=== PATIENT | male | born 1970 | race American Indian/Alaskan Native ===

== ENCOUNTER 2017-04-06 17:51 | Emergency (ER) | payer BC ==
[2017-04-06] MEDS ORDERED: Sodium Chloride 0.9% 10 ML Syringe FLUSH PRN (18:36)
[2017-04-06] MEDS ORDERED: Ondansetron 4 MG/2 ML SDV IV ONE (18:42)
--- NOTE | 2017-04-06 18:50 | EDM.PDOC ---
Scribed by Constance Peoples 04/06/17 [id number] for Juan Narayan MD <Juan Narayan - Last Filed: 04/06/17 18:49> ED HPI GENERAL MEDICAL PROBLEM - General Chief Complaint: General Stated Complaint: FEEL SICK [id number] Time Seen by Provider: 04/06/17 18:22 Source of Information: Reports: Patient, RN, RN Notes Reviewed History Limitations: Reports: No Limitations - History of Present Illness INITIAL COMMENTS - FREE TEXT/NARRATIVE: Arrives by private vehicle with complaint of vague not feeling well x2 days. Patient states that 2 evenings ago he fell asleep on the couch. He was having difficulty waking up. States that he could see his , but he felt as though he was looking through a swarm of nats. He states that he closed his eyes and blinked a few times, but continued to have the visual changes. He fell back asleep and awoke with normal vision. Today he felt well enough to travel from his home at [place] to look at the animals at [facility] and shortly after arriving he began to drop objects unintentionally from both hands, but states that he did not feel weak, but yet continued dropping objects. He also developed some twitching of his right leg. Admits to a pressure like headache of 2 days but states that it is mild to moderate. He last ate at 3 pm chicken at [facility] and has vomited twice since then. Denies abdominal pain. Admits to mild nausea. Patient's reports that he has been mildly confused on and off during the day. Denies fever or chills. Patient had a left forearm AV fistula placed for dialysis approximately one and half weeks ago in [place] and has a central venous port in the right upper chest, which he has been receiving dialysis through. Patient is not able to provide any further history. Location: Reports: Generalized Quality: Reports: Ache Severity: Severe Improves with: Reports: None Worsens with: Reports: None Associated Symptoms: Reports: No Other Symptoms - Related Data Allergies Allergy/AdvReac Type Severity Reaction Status Date / Time labetalol Allergy Intermediate jose raul and Verified 04/06/17 18:06 potassium spikes Home Meds: Home Meds Acetaminophen/oxyCODONE [Percocet 325-5 MG] 1 tab PO ASDIRECTED PRN 04/06/17 [ History] Baclofen [Baclofen] 1 tab PO BID 04/06/17 [History] Cephalexin [Cephalexin] 1 cap PO DAILY 04/06/17 [History] ClonazePAM [KlonoPIN] 1 tab PO ASDIRECTED PRN 04/06/17 [History] Colesevelam [Welchol] 2 tab PO BID 04/06/17 [History] Diclofenac Sodium [Voltaren] 1 applicful TOP ASDIRECTED PRN 04/06/17 [History] Doxazosin [Cardura] 1 tab PO BEDTIME 04/06/17 [History] Doxazosin [Cardura] 2 tab PO DAILY 04/06/17 [History] Exenatide Microspheres [Bydureon Pen] 2 mg SQ WEEKLY 04/06/17 [History] Furosemide [Furosemide] 1 tab PO DAILY 04/06/17 [History] Gabapentin [Neurontin] 1 cap PO BID 04/06/17 [History] Insulin Aspart [NovoLOG] 20 unit SQ TID 04/06/17 [History] Insulin Degludec [Tresiba Flextouch U-200] 100 unit SQ BID 04/06/17 [History] LORazepam 1 tab PO ASDIRECTED PRN 04/06/17 [History] Levothyroxine Sodium [Synthroid] 2 tab PO DAILY 04/06/17 [History] Metoprolol Succinate [Toprol XL] 1 tab PO DAILY 04/06/17 [History] Omeprazole [Omeprazole] 1 tab PO BID 04/06/17 [History] Ondansetron [Ondansetron ODT] 1 tab PO ASDIRECTED PRN 04/06/17 [History] Promethazine [Phenergan] 1 tab PO ASDIRECTED PRN 04/06/17 [History] traMADol [Ultram] 1 tab PO ASDIRECTED PRN 04/06/17 [History] Past Medical History Cardiovascular History: Reports: Heart Failure, Hypertension Genitourinary History: Reports: Chronic Renal Insuffiency, Dialysis Endocrine/Metabolic History: Reports: Diabetes, Type II, Hypothyroidism, IDDM, Obesity/BMI 30+ Social & Family History - Family History Family Medical History: Noncontributory - Tobacco Use Smoking Status *Q: Never Smoker - Alcohol Use Alcohol Use History: No - Recreational Drug Use Recreational Drug Use: No ED ROS GENERAL - Review of Systems Review Of Systems: ROS reveals no pertinent complaints other than HPI. ED EXAM, GENERAL - Physical Exam Exam: See Below Exam Limited By: Altered Mental Status General Appearance: Alert, Obese Eye Exam: Bilateral Eye: EOMI, Normal Inspection, PERRL Ears: Normal External Exam, Hearing Grossly Normal Nose: Normal Inspection, Normal Mucosa, No Blood Throat/Mouth: Normal Inspection, Normal Lips, Normal Teeth, Normal Gums, Normal Oropharynx, Normal Voice, No Airway Compromise, Other (dry oral membranes) Head: Atraumatic, Normocephalic Neck: Normal Inspection, Supple, Non-Tender, Full Range of Motion Respiratory/Chest: No Respiratory Distress, No Accessory Muscle Use, Chest Non- Tender, Decreased Breath Sounds, Crackles Cardiovascular: Normal Peripheral Pulses, Regular Rate, Rhythm, No Edema GI/Abdominal: Normal Bowel Sounds, Soft, Non-Tender, No Distention, No Abnormal Bruit, Other (benign obese abdomen) (Male) Exam: Deferred Rectal (Males) Exam: Deferred Back Exam: Normal Inspection Extremities: Normal Inspection, Normal Range of Motion, Non-Tender, Normal Capillary Refill, No Pedal Edema Neurological: Alert, Oriented, No Motor/Sensory Deficits Psychiatric: Normal Affect, Normal Mood Skin Exam: Warm, Dry, Intact, Normal Color, No Rash, Other (CP port at Rt upper chest wall with very small area of irritation/erythema for approx. 1-2mm around the port and the sutures, no tenderness, no purulent drainage) Course - Vital Signs Last Recorded V/S: Last Vital Signs Temp 97.4 F 04/06/17 20:39 Pulse 80 04/06/17 20:39 Resp 16 04/06/17 20:39 BP 151/72 H 04/06/17 20:39 Pulse Ox 97 04/06/17 20:39 - Orders/Labs/Meds Orders: Active Orders 24 hr Category Date Time Status EKG 12 Lead [EKG Documentation Completion] [RC] STAT Care 04/06/17 18:35 Active Peripheral IV Care [RC] . DIRECTED Care 04/06/17 18:37 Active Telemetry Monitoring [Cardiac Monitoring] [RC] . Care 04/06/17 18:41 Active DIRECTED CULTURE BLOOD [BC] Stat Lab 04/06/17 18:50 Received CULTURE BLOOD [BC] Stat Lab 04/06/17 18:55 Received Blood Culture x2 Reflex Set [OM.PC] Stat Oth 04/06/17 18:36 Ordered Peripheral IV Insertion Adult [OM.PC] Stat Oth 04/06/17 18:35 Ordered Labs: Laboratory Tests 04/06/17 04/06/17 04/06/17 Range/Units 18:50 18:50 18:50 WBC 7.9 (5.0-10.0) 10^3/uL RBC 4.32 L (4.6-6.2) 10^6/uL Hgb 11.5 L (14.0-18.0) g/dL Hct 35.8 L (40.0-54.0) % MCV 82.9 (80-100) fL MCH 26.6 L (27.0-34.0) pg MCHC 32.1 L (33.0-35.0) g/dL Plt Count 231 (150-450) 10^3/uL Neut % (Auto) 72.7 (42.2-75.2) % Lymph % (Auto) 16.7 L (20.5-50.1) % Moffat % (Auto) 7.3 (2-8) % Eos % (Auto) 2.7 (1.0-3.0) % Baso % (Auto) 0.6 (0.0-1.0) % PT 9.2 (9.0-12.0) SEC INR 0.9 (0.9-1.2) APTT 25.1 (22.0-34.0) SEC Sodium 142 (135-145) mmol/L Potassium 4.5 (3.6-5.0) mmol/L Chloride 109 (101-111) mmol/L Carbon Dioxide 21.0 (21.0-31.0) mmol/L Anion Gap 16.5 BUN 55 H (7-18) mg/dL Creatinine 6.2 H (0.6-1.3) mg/dL Est Cr Clr Drug Dosing 16.34 mL/min Estimated GFR (MDRD) 10 BUN/Creatinine Ratio 8.87 Glucose 168 H (74-105) mg/dL Lactic Acid (0.5-2.2) mmol/L Calcium 8.7 (8.4-10.2) mg/dl Total Bilirubin 0.5 (0.2-1.0) mg/dL AST 18 (10-42) IU/L ALT 15 (10-60) IU/L Alkaline Phosphatase 75 (42-121) IU/L Ammonia (11-35) umol/L B-Natriuretic Peptide 87 (0-100) pg/ml Total Protein 7.0 (6.7-8.2) g/dl Albumin 3.1 L (3.2-5.5) g/dl Globulin 3.9 Albumin/Globulin Ratio 0.79 Amylase 131 H (28-100) U/L Lipase 63 H (22-51) U/L Urine Color (YELLOW) Urine Appearance (CLEAR) Urine pH (5.0-9.0) Ur Specific [place] (1.005-1.030) Urine Protein (NEGATIVE) Urine Glucose (UA) (NEGATIVE) Urine Ketones (NEGATIVE) Urine Occult Blood (NEGATIVE) Urine Nitrite (NEGATIVE) Urine Bilirubin (NEGATIVE) Urine Urobilinogen (0.2-1.0) mg/dL Ur Leukocyte Esterase (NEGATIVE) Urine RBC /HPF Urine WBC (0-5/HPF) /HPF Ur Epithelial Cells /HPF Amorphous Sediment (0/HPF) /HPF Urine Bacteria (0-FEW/HPF) /HPF Hyaline Casts /LPF Urine Mucus /LPF Urine Opiates Screen (NEGATIVE) Ur Oxycodone Screen (NEGATIVE) Urine Methadone Screen (NEGATIVE) Ur Barbiturates Screen (NEGATIVE) U Tricyclic Antidepress (NEGATIVE) Ur Phencyclidine Scrn (NEGATIVE) Ur Amphetamine Screen (NEGATIVE) U Methamphetamines Scrn (NEGATIVE) Urine MDMA Screen (NEGATIVE) U Benzodiazepines Scrn (NEGATIVE) Urine Cocaine Screen (NEGATIVE) U Marijuana (THC) Screen (NEGATIVE) Ethyl Alcohol < 5 mg/dL 04/06/17 04/06/17 04/06/17 Range/Units 18:50 18:50 19:23 WBC (5.0-10.0) 10^3/uL RBC (4.6-6.2) 10^6/uL Hgb (14.0-18.0) g/dL Hct (40.0-54.0) % MCV (80-100) fL MCH (27.0-34.0) pg MCHC (33.0-35.0) g/dL Plt Count (150-450) 10^3/uL Neut % (Auto) (42.2-75.2) % Lymph % (Auto) (20.5-50.1) % Moffat % (Auto) (2-8) % Eos % (Auto) (1.0-3.0) % Baso % (Auto) (0.0-1.0) % PT (9.0-12.0) SEC INR (0.9-1.2) APTT (22.0-34.0) SEC Sodium (135-145) mmol/L Potassium (3.6-5.0) mmol/L Chloride (101-111) mmol/L Carbon Dioxide (21.0-31.0) mmol/L Anion Gap BUN (7-18) mg/dL Creatinine (0.6-1.3) mg/dL Est Cr Clr Drug Dosing mL/min Estimated GFR (MDRD) BUN/Creatinine Ratio Glucose (74-105) mg/dL Lactic Acid 1.2 (0.5-2.2) mmol/L Calcium (8.4-10.2) mg/dl Total Bilirubin (0.2-1.0) mg/dL AST (10-42) IU/L ALT (10-60) IU/L Alkaline Phosphatase (42-121) IU/L Ammonia 29 (11-35) umol/L B-Natriuretic Peptide (0-100) pg/ml Total Protein (6.7-8.2) g/dl Albumin (3.2-5.5) g/dl Globulin Albumin/Globulin Ratio Amylase (28-100) U/L Lipase (22-51) U/L Urine Color (YELLOW) Urine Appearance (CLEAR) Urine pH (5.0-9.0) Ur Specific [place] (1.005-1.030) Urine Protein (NEGATIVE) Urine Glucose (UA) (NEGATIVE) Urine Ketones (NEGATIVE) Urine Occult Blood (NEGATIVE) Urine Nitrite (NEGATIVE) Urine Bilirubin (NEGATIVE) Urine Urobilinogen (0.2-1.0) mg/dL Ur Leukocyte Esterase (NEGATIVE) Urine RBC /HPF Urine WBC (0-5/HPF) /HPF Ur Epithelial Cells /HPF Amorphous Sediment (0/HPF) /HPF Urine Bacteria (0-FEW/HPF) /HPF Hyaline Casts /LPF Urine Mucus /LPF Urine Opiates Screen Negative (NEGATIVE) Ur Oxycodone Screen Negative (NEGATIVE) Urine Methadone Screen Negative (NEGATIVE) Ur Barbiturates Screen Negative (NEGATIVE) U Tricyclic Antidepress Negative (NEGATIVE) Ur Phencyclidine Scrn Negative (NEGATIVE) Ur Amphetamine Screen Negative (NEGATIVE) U Methamphetamines Scrn Negative (NEGATIVE) Urine MDMA Screen Negative (NEGATIVE) U Benzodiazepines Scrn Positive H (NEGATIVE) Urine Cocaine Screen Negative (NEGATIVE) U Marijuana (THC) Screen Negative (NEGATIVE) Ethyl Alcohol mg/dL 04/06/17 Range/Units 19:23 WBC (5.0-10.0) 10^3/uL RBC (4.6-6.2) 10^6/uL Hgb (14.0-18.0) g/dL Hct (40.0-54.0) % MCV (80-100) fL MCH (27.0-34.0) pg MCHC (33.0-35.0) g/dL Plt Count (150-450) 10^3/uL Neut % (Auto) (42.2-75.2) % Lymph % (Auto) (20.5-50.1) % Moffat % (Auto) (2-8) % Eos % (Auto) (1.0-3.0) % Baso % (Auto) (0.0-1.0) % PT (9.0-12.0) SEC INR (0.9-1.2) APTT (22.0-34.0) SEC Sodium (135-145) mmol/L Potassium (3.6-5.0) mmol/L Chloride (101-111) mmol/L Carbon Dioxide (21.0-31.0) mmol/L Anion Gap BUN (7-18) mg/dL Creatinine (0.6-1.3) mg/dL Est Cr Clr Drug Dosing mL/min Estimated GFR (MDRD) BUN/Creatinine Ratio Glucose (74-105) mg/dL Lactic Acid (0.5-2.2) mmol/L Calcium (8.4-10.2) mg/dl Total Bilirubin (0.2-1.0) mg/dL AST (10-42) IU/L ALT (10-60) IU/L Alkaline Phosphatase (42-121) IU/L Ammonia (11-35) umol/L B-Natriuretic Peptide (0-100) pg/ml Total Protein (6.7-8.2) g/dl Albumin (3.2-5.5) g/dl Globulin Albumin/Globulin Ratio Amylase (28-100) U/L Lipase (22-51) U/L Urine Color Yellow (YELLOW) Urine Appearance Slightly cloudy (CLEAR) Urine pH 5.5 (5.0-9.0) Ur Specific [place] 1.025 (1.005-1.030) Urine Protein >=300 H (NEGATIVE) Urine Glucose (UA) 100 H (NEGATIVE) Urine Ketones Negative (NEGATIVE) Urine Occult Blood Small H (NEGATIVE) Urine Nitrite Negative (NEGATIVE) Urine Bilirubin Negative (NEGATIVE) Urine Urobilinogen 0.2 (0.2-1.0) mg/dL Ur Leukocyte Esterase Negative (NEGATIVE) Urine RBC 0-5 /HPF Urine WBC 0-5 (0-5/HPF) /HPF Ur Epithelial Cells Few /HPF Amorphous Sediment Few (0/HPF) /HPF Urine Bacteria Moderate H (0-FEW/HPF) /HPF Hyaline Casts Few H /LPF Urine Mucus Few H /LPF Urine Opiates Screen (NEGATIVE) Ur Oxycodone Screen (NEGATIVE) Urine Methadone Screen (NEGATIVE) Ur Barbiturates Screen (NEGATIVE) U Tricyclic Antidepress (NEGATIVE) Ur Phencyclidine Scrn (NEGATIVE) Ur Amphetamine Screen (NEGATIVE) U Methamphetamines Scrn (NEGATIVE) Urine MDMA Screen (NEGATIVE) U Benzodiazepines Scrn (NEGATIVE) Urine Cocaine Screen (NEGATIVE) U Marijuana (THC) Screen (NEGATIVE) Ethyl Alcohol mg/dL Meds: Medications Discontinued Medications Generic Name Dose Route Start Last Admin Trade Name Freq PRN Reason Stop Dose Admin Metoclopramide HCl 10 mg 04/06/17 19:54 04/06/17 20:03 Reglan IVPUSH 04/06/17 19:55 10 mg ONETIME ONE Administration Ondansetron HCl 4 mg 04/06/17 18:42 04/06/17 19:04 Zofran IV 04/06/17 18:43 4 mg ONETIME ONE Administration Sodium Chloride 10 ml 04/06/17 18:36 04/06/17 19:04 Saline Flush FLUSH 10 ml ASDIRECTED PRN Administration Keep Vein Open Departure - Departure Disposition: DC/Tfer to [facility] Clinical Impression: Hyperglycemia, Weakness Altered mental status, unspecified Qualifiers: Altered mental status type: disorientation Qualified Code(s): R41.0 - Disorientation, unspecified Renal failure, chronic Qualifiers: Chronic kidney disease stage: unspecified stage Qualified Code(s): N18.9 - Chronic kidney disease, unspecified - Discharge Information Referrals: PCP,None [Primary Care Provider] - Forms: ED Department Discharge <Paola Washington - Last Filed: 04/07/17 05:00> Course - Radiology Interpretation Free Text/Narrative:: CT head negative CXR no acute disease - Re-Assessments/Exams Free Text/Narrative Re-Assessment/Exam: 04/06/17 20:16 Nauseated, no emesis, continued upper extremity and generalized weakness. Bilateral welder repair strength equal, fine motor decreased left upper, frequent dropping of light object. Left pronator drift. Dr. Javier Arroyo [facility], accepting of patient for further evaluation. Patient's primary IM/Nephrology Dr. Trevor Arroyo Tx via [facility] in stable condition Departure - Departure Time of Disposition: 20:30 Condition: Fair I have read and agree with the documentation that has been completed regarding this visit. By signing this record, I attest that the documentation was completed in my physical presence and is an accurate record of the encounter.
[2017-04-06 19:23] LABS: CHLORIDE,CL 109 mmol/L (101-111); SODIUM,NA 142 mmol/L (135-145)
[2017-04-06] MEDS ORDERED: Metoclopramide 10 MG/2 ML SDV IVPUSH ONE (19:54)
[2017-04-06 20:10] VITALS: BP 151/72
--- NOTE | 2017-04-28 09:36 | EKG ---
04/06/2017- ADITYA POWELL - This is a 12-lead standard EKG showing normal sinus rhythm with a ventricular rate of 90 beats per minute. There is incomplete right bundle branch block. There are ST-T changes to the precordial lead. Clinical correlation is recommended. [facility] /[id number]
== END 2017-04-06 20:39 ==
LOC: DL.ED 17:51
DX: E11.65 Type 2 diabetes mellitus with hyperglycemia (principal); R41.0 Disorientation, unspecified; I13.0 Hypertensive heart and chronic kidney disease with heart failure and stage 1 through stage 4 chronic kidney disease, or unspecified chronic kidney disease; E11.22 Type 2 diabetes mellitus with diabetic chronic kidney disease; N18.9 Chronic kidney disease, unspecified; I50.9 Heart failure, unspecified; E66.9 Obesity, unspecified; Z99.2 Dependence on renal dialysis; Z79.4 Long term (current) use of insulin; Z79.899 Other long term (current) drug therapy; Z88.8 Allergy status to other drugs, medicaments and biological substances; Z68.39 Body mass index [BMI] 39.0-39.9, adult
CPT/HCPCS: 36415; 70450; 71010; 80053; 80305; 81001; 82140; 82150; 83605; 83690; 83880; 85025; 85610; 85730; 87040; 93005; 96374; 96375; 99285; G0480; J2405; J2765; J7050